=== PATIENT | female | born 1995 | race Caucasian/White ===

== ENCOUNTER 2016-12-09 12:52 | Emergency (ER) | payer OTHER ==
[~2016-12-09] VITALS: Ht 154.9 cm; Wt 45.4 kg
[~2016-12-09 12:52] MED LIST: ACETAMINOPHEN325 M1 PO; ALEVE220 MG PO; AMOXICILLIN 50500 M1 PO; APAP500 PO; NORCO 5-325 TA1 EACH PO; PRENATAL PO; TUMS PO; ZOFRAN4 MG PO
[2016-12-09 13:33] LABS: URINE BILIRUBIN NEGATIVE (Negative); URINE BLOOD TRACE (Negative); URINE COLOR YELLOW; URINE GLUCOSE-RANDOM* NEGATIVE (Negative); URINE KETONES TRACE (Negative); URINE NITRITE NEGATIVE (Negative); URINE PROTEIN (DIPSTICK) NEGATIVE (Negative); URINE SPECIFIC GRAVITY >= 1.030 (1.003-1.035); URINE UROBILINOGEN 0.2 E.U./dl (0.2-1.0)
[2017-01-03] MEDS ORDERED: SUDOGEST30 MG PO (18:03)
[2017-01-03] MEDS ORDERED: ZYRTEC10 M2 PO (18:03)
[2017-01-03] MEDS ORDERED: IBUPROFEN 600600 M1 PO (18:03)
== END 2016-12-09 14:05 | disposition home or self-care (01) ==
LOC: ER 12:52
PROVIDERS: Nurse Practitioner Family
DX: R30.0 Dysuria (principal)

== ENCOUNTER 2017-05-06 00:41 | Emergency (ER) | payer OTHER ==
[~2017-05-06] VITALS: Ht 152.4 cm; Wt 43.5 kg
[~2017-05-06 00:41] MED LIST changes: +IBUPROFEN 600600 M1 PO; +SUDOGEST30 MG PO; +ZYRTEC10 M2 PO
[2017-05-06] MEDS ORDERED: DELSYM COU30 MG/5 M1 PO (03:09)
[2017-05-06] MEDS ORDERED: MEDROLDOSEPACK PO (03:09)
== END 2017-05-06 03:33 ==
LOC: ER 00:41
DX: O99.511 Diseases of the respiratory system complicating pregnancy, first trimester (principal); O26.891 Other specified pregnancy related conditions, first trimester; J20.8 Acute bronchitis due to other specified organisms; R10.30 Lower abdominal pain, unspecified; Z3A.13 13 weeks gestation of pregnancy

== ENCOUNTER 2018-09-10 20:02 | Emergency (ER) | payer OTHER ==
[~2018-09-10] VITALS: Ht 165.1 cm; Wt 47.6 kg
[~2018-09-10 20:02] MED LIST changes: +DELSYM COU30 MG/5 M1 PO; +MEDROLDOSEPACK PO
[2018-09-10 21:14] LABS: URINE BILIRUBIN NEGATIVE (Negative); URINE BLOOD 1+ (Negative); URINE CLARITY CLOUDY; URINE COLOR YELLOW; URINE GLUCOSE-RANDOM* NEGATIVE (Negative); URINE KETONES NEGATIVE (Negative); URINE NITRITE-REFLEX NEGATIVE (Negative); URINE PROTEIN (DIPSTICK) 1+ (Negative)
[2018-09-10 21:15] LABS: URINE LEUKOCYTES-REFLEX 1+ (Negative)
[2018-09-10 21:16] LABS: ABSOLUTE NEUTROPHILS 7.7 thou/uL (1.4-8.2); BASOPHILS 0.2 % (0.0-2.0); EOSINOPHILS 0.3 % (0.0-3.0); HEMATOCRIT 48.7 % (37.0-47.0); HEMOGLOBIN 16.8 gm/dL (12.0-15.0); LYMPHOCYTES 5.9 % (24.0-44.0); MCH 30.7 pg (26.0-34.0); MCHC 34.5 g/dL (28.0-37.0); MONOCYTES 3.7 % (1.0-8.0); PLATELET COUNT 123 thou/uL (150-400); POLYS 89.9 % (36.0-66.0); RBC 5.47 mil/uL (4.20-5.00); RDW 12.8 % (10.5-14.5); WBC 8.6 thou/uL (4.0-11.0)
[2018-09-10 21:20] LABS: CASTS None Seen /LPF (None Seen); MUCUS 0-3 Light strn/LPF (None Seen); SQUAMOUS 0-3 Few /LPF (0-3); URINE RBC 0-2 Rare /HPF (0-2); URINE WBC-REFLEX >25 Many /HPF (0-5)
[2018-09-10 21:21] LABS: BACTERIA-REFLEX 1-9 Few /HPF (None Seen); CRYSTALS None Seen /LPF (None Seen)
[2018-09-10 21:24] LABS: CALCIUM 8.8 mg/dL (8.5-10.1); CREATININE 0.5 mg/dL (0.6-1.0); POTASSIUM 3.4 mmol/L (3.5-5.1)
[2018-09-10 21:30] LABS: ALBUMIN 3.3 g/dL (3.4-5.0); DIRECT BILIRUBIN 0.2 mg/dL (<0.1-0.3); TOTAL BILIRUBIN 1.3 mg/dL (<0.1-1.0); TOTAL PROTEIN 7.6 g/dL (6.4-8.2)
== END 2018-09-11 04:47 | disposition short-term general hospital (02) ==
LOC: ER 20:02
PROVIDERS: Emergency Medicine
DX: O26.891 Other specified pregnancy related conditions, first trimester (principal); N12 Tubulo-interstitial nephritis, not specified as acute or chronic; R19.7 Diarrhea, unspecified; R11.0 Nausea; Z3A.13 13 weeks gestation of pregnancy; Z90.49 Acquired absence of other specified parts of digestive tract

== ENCOUNTER 2019-01-30 18:24 | Emergency (ER) | payer OTHER ==
[~2019-01-30] VITALS: Ht 167.6 cm; Wt 72.6 kg
[2019-01-30 20:07] VITALS: BP 120/45
== END 2019-01-30 20:07 | disposition home or self-care (01) ==
LOC: ER 18:24
DX: J30.9 Allergic rhinitis, unspecified (principal); J06.9 Acute upper respiratory infection, unspecified; Z90.49 Acquired absence of other specified parts of digestive tract

== ENCOUNTER 2020-11-02 09:39 | Observation (INO) | payer OTHER ==
[~2020-11-02] VITALS: Ht 154.9 cm; Wt 52.2 kg
[2020-11-02] VITALS (9 sets, daily range): BP systolic 93–117; BP diastolic 47–71
[2020-11-02 11:10] LABS: ABSOLUTE NEUTROPHILS 4.7 thou/uL (1.4-8.2); BASOPHILS 0.4 % (0.0-2.0); EOSINOPHILS 1.1 % (0.0-3.0); HEMATOCRIT 39.2 % (37.0-47.0); HEMOGLOBIN 13.4 gm/dL (12.0-15.0); LYMPHOCYTES 27.4 % (24.0-44.0); MCH 31.3 pg (26.0-34.0); MCHC 34.2 g/dL (28.0-37.0); MCV 91.4 fL (80.0-100.0); MONOCYTES 7.4 % (1.0-8.0); PLATELET COUNT 199 thou/uL (150-400); POLYS 63.7 % (36.0-66.0); RBC 4.29 mil/uL (4.20-5.00); RDW 12.7 % (10.5-14.5); WBC 7.4 thou/uL (4.0-11.0)
[2020-11-02 11:16] LABS: CALCIUM 9.2 mg/dL (8.5-10.1); CREATININE 0.6 mg/dL (0.6-1.0); POTASSIUM 3.2 mmol/L (3.5-5.1)
--- NOTE | 2020-11-02 13:39 | NUR ---
FOR TRANSFUSION VITALS/INFOR, SEE SCANNED-IN [facility] EMERGENCY TRANSFUSION PAPER WORK: IN PT. CHART
[2020-11-02 14:09] LABS: HEMATOCRIT 25.3 % (37.0-47.0)
[2020-11-02 14:13] LABS: HEMOGLOBIN 8.4 gm/dL (12.0-15.0)
--- NOTE | 2020-11-02 16:23 | NUR ---
PATIENT ADMITTED TO [facility] AT 1540. SHE IS ORIENTED HOWEVER SLIGHTLY DROWSY. SHE WAS ABLE TO ANSWER ORIENTATION QUESTIONS. LR INFUSING, NURSE TO START NS PER PHYSICIAN ORDER. NURSE ENCOURAGED PATIENT TO NOTIFY HER , SINCE THE NUMBER WE HAVE IS INCORRECT, SHE EXPRESSED IT IS IN OUR PHONE. PATIENT EXPRESSED SHE WILL CALL HER . NURSE TO ASSESS AND ANSWER HIS QUESTIONS ABLE.
[2020-11-02 19:02] LABS: HEMATOCRIT 31.6 % (37.0-47.0); MCH 30.6 pg (26.0-34.0); MCHC 33.4 g/dL (28.0-37.0); MCV 91.8 fL (80.0-100.0); RBC 3.45 mil/uL (4.20-5.00); RDW 12.5 % (10.5-14.5)
[2020-11-02 19:04] LABS: HEMOGLOBIN 10.6 gm/dL (12.0-15.0)
--- NOTE | 2020-11-02 22:10 | NUR ---
REPORT CALLED TO JORGE CASTELLANOS ON 4W.
[2020-11-03 05:10] VITALS: BP 79/45
--- NOTE | 2020-11-03 05:14 | NUR ---
Pt. rested quietly during the night when checked on during frequent rounds. Three lapsites to abdomen are dry and intact. No c/o pain during the night.
[2020-11-03 07:31] VITALS: BP 95/54
[2020-11-03] MEDS ORDERED: IBUPROFEN 400400 M2 PO (07:38)
[2020-11-03] MEDS ORDERED: HYDROCODON-ACE1 EAC7 PO (07:38)
[2020-11-03 08:30] LABS: HEMATOCRIT 26.6 % (37.0-47.0); HEMOGLOBIN 8.9 gm/dL (12.0-15.0); MCH 30.7 pg (26.0-34.0); MCHC 33.5 g/dL (28.0-37.0); MCV 91.7 fL (80.0-100.0); RBC 2.9 mil/uL (4.20-5.00); RDW 13.3 % (10.5-14.5); WBC 8.3 thou/uL (4.0-11.0)
--- NOTE | 2020-11-03 10:55 | NUR ---
PT CARE ASSUMED AT 0700. A&Ox4. HENRY REMOVED. PT HAS URINATED. PAIN AT A 9 MEDICATION GIVEN AND DOWN TO A 4 AT REEVALUATION. IV PATENT WITH N O REDNESS OR EDEMA, SALINE LOCKED. FLU VACCINE ADMINISTERED. LAPSITES x3 DRY AND INTACT. ABDOMEN SOFT AND TENDER TO TOUCH. UP AT [facility]. EDUCATED ON PAIN MANAGMENT. CALL LIGHT IN REACH. WILL CONTINUE TO MONITOR HBG.
[2020-11-03 12:29] LABS: HEMATOCRIT 25.9 % (37.0-47.0); HEMOGLOBIN 8.7 gm/dL (12.0-15.0)
[2020-11-03 13:39] VITALS: BP 95/54
--- NOTE | 2020-11-04 16:06 | PATH ---
[facility] [address] [place] [address] PATHOLOGY RPT PROCEDURE Name: EBENEZER VILLA JUANA Room #: 458-P CORINNE Benson#: [id number] Admission: 11/02/20 Date of : 89 Discharge: 11/03/20 Report #: [id number] Path Case #: [id number] [facility] Accession Number: [id number] . 01 Material submitted: . fallopian tube - RIGHT FALLOPIAN TUBE AND ECTOPOIC . 01 Clinical history: . RUPTURED ECTOPIC . 02 Diagnosis: Fallopian tube, right fallopian tube and ectopic, salpingectomy: - Immature hydropic chorionic villi along with membranes and trophoblastic elements within the fallopian tube lumen, compatible with ectopic . - Focal uninvolved fallopian tube tissue present. (IUV:deanna; 11/04/2020) MBR 11/04/2020 1554 Local . 02 Electronically signed: . Laura Quinn MD, Pathologist NPI- [id number] . 01 Gross description: . The specimen is received in formalin, labeled "Ebenezer Romano, right fallopian tube and ectopic" and consists of a fimbriated fallopian tube segment measuring 7.7 cm in length and ranging from 0.6-2.4 cm in diameter. The serosa is pink purple and smooth. Sectioning shows a markedly dilated lumen containing hemorrhagic material/clot and possible soft brown tissue. [employer] sections are submitted in A1-A4. (SDY; 11/03/2020) SYU/SYU 11/03/2020 1629 Local . 02 Pathologist provided ICD-10: O00.90 . 02 CPT . 747521 Specimen Comment: A courtesy copy of this report has been sent to [phone] Specimen Comment: [id number] Specimen Comment: Report sent to / DR MCKEON Performed at: [address] [facility], [place] [id number] MD Johnson Vázquez MD Phone: [phone] Performed at: [address] [address] PATHOLOGY RPT PROCEDURE Name: EBENEZER VILLA JUANA Room #: 458-P [facility] M.R.#: [id number] Admission: 11/02/20 Date of : [birth year] Discharge: 11/03/20 Report #: [id number] Path Case #: [id number] [facility] [address], [place], [place] [id number] MD Laura Quinn MD Phone: [phone]
--- NOTE | 2020-11-10 12:45 | O ---
[facility] [place] [address] OPERATIVE REPORT Name: EBENEZER VILLA Room #: 458-P [facility] Vaughn Benson#: [id number] Admission: 11/02/20 Attend Phys: Chante Rose DO Discharge: 11/03/20 Date of : 89 Report #: [id number] THIS REPORT FOR: cc: ANATOLIY - No family physician/PCP FAM - No family physician/PCP Chante Rose DO ~ DATE OF SERVICE: 11/02/2020 PREOPERATIVE DIAGNOSIS: Ruptured ectopic . POSTOPERATIVE DIAGNOSES: 1. Ruptured ectopic . 2. Acute blood loss anemia. PROCEDURES: Laparoscopic right salpingectomy with removal of ectopic and evacuation of hematoperitoneum. SURGEON: Dr. Chante Rose. ANESTHESIA: General. INTRAVENOUS FLUIDS: 1400 mL and 1 unit of packed red blood cells. URINE OUTPUT: 125 mL. ESTIMATED BLOOD LOSS: From rupture 2500 mL. COMPLICATIONS: None. DESCRIPTION OF PROCEDURE: The patient was taken to the operating room where general anesthesia was administered and found to be adequate. She was then prepped and draped in normal sterile fashion in dorsal lithotomy position. A Sal catheter was placed in the patient's bladder. The bladder was drained of urine. A weighted speculum was placed in the patient's vagina. The anterior lip of the cervix was identified and grasped with a single tooth tenaculum. The [employer] uterine manipulator was then inserted through the cervix, gently advanced into the uterus and the balloon was inflated. The tenaculum was removed from the patient's cervix and the weighted speculum was removed from the patient's vagina. Sterile gloves were changed and attention was then turned to the patient's abdomen. A 5 mm infraumbilical incision was made with a scalpel. A 5 mm trocar was placed through this incision under direct visualization of laparoscope. No insertional trauma was identified. Pneumoperitoneum was allowed to accumulate using carbon dioxide gas and a survey of the patient's abdomen revealed a hemoperitoneum. A second incision was made in the patient's left lower quadrant, this was an 11 mm incision. A 11 mm trocar was placed through this incision under direct visualization of laparoscope. No insertional [address] [address] OPERATIVE REPORT Name: EBENEZER VILLA Room #: 458-P [facility] Vaughn Benson#: [id number] Admission: 11/02/20 Attend Phys: Chante Rose DO Discharge: 11/03/20 Date of : 89 Report #: [id number] trauma was identified. The hematoperitoneum was evacuated with suction. Once the majority of the blood was evacuated from the abdomen, a third incision was placed in the patient's right lower quadrant. A 5 mm trocar was placed through this incision under direct visualization of the laparoscope. Again, no insertional trauma was identified. Using a grasper, the right fallopian tube was grasped and gently retracted slightly out of the pelvis. The Sonicision was then used to transect at the cornua of the uterus, the fallopian tube and then directly beneath the fallopian tube across the mesosalpinx until the entire fallopian tube was transected. This was due to the vast amount of damage, the ectopic had done to the fallopian tube. The ectopic encompassed the majority of the fallopian tube. The specimen was placed in the patient's pelvis. Further survey of the patient's pelvis revealed hemostasis. The patient was placed in reverse Trendelenburg to drain the pericolic gutters, good descent into the pelvis for further evacuation of the hematoperitoneum using suction. Once this was accomplished, the patient was placed back in slight Trendelenburg position. An Endopouch was placed through the 11 mm trocar and the specimen was removed through this trocar. The pelvis was irrigated and again hemostasis was noted at the pedicle. All irrigant was removed from the patient's pelvis. The pneumoperitoneum was allowed to escape. All trocars were removed from the patient's abdomen. The incisions were then reapproximated using 4-0 Monocryl. All instrumentation was then removed from the patient's uterus. The patient tolerated the procedure well. Sponge, lap and needle counts were reported as correct and the patient was taken to the recovery room in stable condition. <ELECTRONICALLY SIGNED> By: Chante Rose DO 11/10/20 1245 1501 1516 Chante Rose DO /nt
== END 2020-11-03 14:20 | disposition home or self-care (01) ==
LOC: ER 09:39 → EROBS 13:04 → 3W 13:04 → TBA 13:35 → 3W 15:43 → 4W 22:35
PROVIDERS: Anesthesiology; Emergency Medicine; ADMIT Obstetrics & Gynecology; ATTEND Obstetrics & Gynecology
DX: O00.90 Unspecified ectopic pregnancy without intrauterine pregnancy (principal); D62 Acute posthemorrhagic anemia; Z20.828 Contact with and (suspected) exposure to other viral communicable diseases; Z23 Encounter for immunization
CPT/HCPCS: 50011; 50101; 50386; 50400; 50555; 50685; 50900; 50962; 51489; 52287; 53307; 56526; 62110; 62900